=== PATIENT | male | born 1965 | race Caucasian/White ===

== ENCOUNTER → 2020-01-31 09:45 | Outpatient (BNVA) | payer MEDICAID, SELFPAY | PROVIDERS: Family Provider Family Medicine; Visit Provider Nurse Practitioner Psychiatric/Mental Health | DX: F34.1 Dysthymic disorder (principal); F41.1 Generalized anxiety disorder; F17.220 Nicotine dependence, chewing tobacco, uncomplicated | CPT/HCPCS: 99213 ==

== ENCOUNTER → 2020-10-09 08:28 | Outpatient (BNVA) | payer MEDICAID, SELFPAY | PROVIDERS: Family Provider Family Medicine; Visit Provider Nurse Practitioner Psychiatric/Mental Health | DX: F34.1 Dysthymic disorder (principal); F41.1 Generalized anxiety disorder; F17.220 Nicotine dependence, chewing tobacco, uncomplicated | CPT/HCPCS: 99214 ==

== ENCOUNTER → 2020-11-16 09:02 | Outpatient (BNVA) | payer MEDICAID, SELFPAY | PROVIDERS: Family Provider Family Medicine; Visit Provider Nurse Practitioner Psychiatric/Mental Health | DX: F34.1 Dysthymic disorder (principal); F41.1 Generalized anxiety disorder; F17.220 Nicotine dependence, chewing tobacco, uncomplicated | CPT/HCPCS: 99213 ==

== ENCOUNTER → 2021-03-15 08:32 | Outpatient (BNVA) | payer MEDICAID, SELFPAY | PROVIDERS: Family Provider Family Medicine; Visit Provider Nurse Practitioner Psychiatric/Mental Health | DX: F34.1 Dysthymic disorder (principal); F41.1 Generalized anxiety disorder; F17.220 Nicotine dependence, chewing tobacco, uncomplicated | CPT/HCPCS: 99213 ==

== ENCOUNTER → 2021-06-07 09:26 | Outpatient (BNVA) | payer MEDICAID, SELFPAY | PROVIDERS: Visit Provider Nurse Practitioner Psychiatric/Mental Health | DX: F34.1 Dysthymic disorder (principal); F41.1 Generalized anxiety disorder; F17.220 Nicotine dependence, chewing tobacco, uncomplicated | CPT/HCPCS: 99214 ==

== ENCOUNTER → 2021-09-27 08:47 | Outpatient (BNVA) | payer MEDICAID, SELFPAY | PROVIDERS: Visit Provider Nurse Practitioner Psychiatric/Mental Health | DX: F34.1 Dysthymic disorder (principal); F41.1 Generalized anxiety disorder; F17.220 Nicotine dependence, chewing tobacco, uncomplicated | CPT/HCPCS: 99214 ==

== ENCOUNTER 2021-10-17 08:47 | Outpatient (CLI) | payer MEDICAID, SELFPAY ==
--- NOTE | 2021-10-17 | CT_ITS ---
WS: [id number] CT ABDOMEN AND PELVIS WITH CONTRAST HISTORY: JAUNDICE TECHNIQUE: Imaging performed of the abdomen and pelvis with IV contrast. Single phase imaging of the abdomen. Coronal and sagittal reformats are submitted. All CT scans at [facility] use at [address] one of these dose optimization techniques: automated exposure control; mA and/or kV adjustment per patient size (includes targeted exams where dose is matched to clinical indication); or iterative re construction. IV CONTRAST: Omnipaque 300; 95 mL IV. Oral contrast: Yes. DLP: 1369.81 mGycm COMPARISON: Limited abdomen ultrasound 05/14/2021. Lower thorax: Lung bases are clear. Heart is normal size. Small hiatal hernia. Liver/biliary system: Liver is normal size. There is severe bile duct dilatation. Bile ducts are dila kushal within the RIGHT and LEFT hepatic lobes. There is increased density and enhancement along the com mon hepatic duct. The common bile duct at the pancreatic head is not dilated. In the periphery of the RIGHT lobe of the liver there are a few low-attenuation nodules measuring up to 18 mm in diameter. Gallbladder: No history of prior cholecystectomy. A normal identifiable gallbladder is not evident. T here is a large complex low-attenuation collection in the expected location of the gallbladder fossa. There is variable density and variable enhancement. Pancreas: Pancreatic head is normal. There is a lobulated fluid collection involving the tail of the pancreas measuring 6.1 x 5.6 cm. Spleen: Normal size spleen. No mass or infarct. Adrenal glands: Normal. Right kidney: Renal cyst. The largest in the posterior mid kidney measures 2.0 cm. No solid mass or o bstruction. Left kidney: Tiny cortical cysts with no obstruction or solid mass. Aorta: Mild atherosclerosis with no aneurysm. Mild ectasia. Lymphadenopathy: There are several small but mildly prominent lymph nodes at the aortocaval region me asuring up to 7 mm in diameter. Free fluid: None. GI tract: Normal appendix. No GI tract obstruction. Abdominal wall: Unremarkable abdominal wall. No hernia. Pelvis: No free fluid. Urinary bladder is moderately well distended. Diffuse bladder wall thickening measuring up to 5 mm. May be due to partial outlet obstruction from the bladder. Bones: Unremarkable. CT/CT abdomen pelvis w con* [id number] IMPRESSION: 1. Markedly abnormal appearance to the liver and gallbladder. There is severe intrahepatic duct dilatation to the level of the common hepatic duct. Common bi le duct is normal caliber. 2. An identifiable gallbladder is not evident. There is a low-attenuation mass with peripheral enhancement in the region of the gallbladder fossa and extendi ng into the robbin hepatis. More irregular ill-defined enhancement near the gall bladder fossa and robbin hepatis. Neoplasm needs to be excluded. Gallbladder krista plasm or cholangiocarcinoma should be considered. Cannot exclude obstructing st ones. 3. Additional scattered low-attenuation lesions within the liver are very susp icious for metastatic disease. The largest in the LEFT lobe measures 18 mm. 4. Cystic mass associated with the tail of the pancreas measures 6 x 1 x 5.6 c m. Mass is inseparable from the tail of the pancreas and extends along the para renal fascia. Cystic mass. May be related to pancreatic pseudocyst but cystic n eoplasm is not excluded. 5. There are a few small retroperitoneal lymph nodes. Notified Rangel Giron MD at 10/17/2021 11:17 AM.
[2021-10-17] MEDS: iohexol 300 mg/mL 50 mL Btl PO (09:09)
[2021-10-17] MEDS: iohexol 300 mg/mL 100 mL Btl IV (10:54)
== END 2021-10-17 08:48 | disposition home or self-care (01) ==
PROVIDERS: Visit Provider Family Medicine
DX: R17 Unspecified jaundice (principal); K86.9 Disease of pancreas, unspecified
CPT/HCPCS: 74177; Q9967

== ENCOUNTER 2021-11-01 10:33 | Emergency (ER) | payer MEDICAID, SELFPAY ==
[2021-11-01 10:55] VITALS: BP 109/63; PULSE 89; RESP 18; TEMP 36.9; O2SAT 97; BMI 23.6
[2021-11-01 11:40] LABS: Basophils # 0.1 10^3/uL (0.0-0.1); Basophils % 0.3 %; Hemoglobin 12.5 g/dL (11.7-16.6); Lymphocytes # 0.7 10^3/uL (0.8-4.8); Lymphocytes % 2.6 %; Mean Corpuscular HGB Conc 35.7 g/dL (30.0-36.0); Mean Corpuscular Hemoglobin 30.4 pg (28.0-34.0); Mean Corpuscular Volume 85.2 fl (80-94); Mean Platelet Volume 11.4 fL (7.4-10.4); Monocytes # 0.7 10^3/uL (0.2-0.9); Monocytes % 2.9 %; Neutrophils # 24.12 10^3/uL (1.8-7.7); Nucleated Red Blood Cells % 0 %; Platelet Count 268 10^3/cmm (130-400); Red Blood Count 4.11 10^6/uL (4.1-5.3); Red Cell Distribution Width 18.6 % (12.1-15.1); White Blood Count 25.9 10^3/uL (4.0-10.0)
[2021-11-01 11:42] LABS: INR 1.67 (0.8-1.2)
[2021-11-01 11:43] LABS: Partial Thromboplastin Time 53.8 SECONDS (23.9-36.7)
--- NOTE | 2021-11-01 11:43 | ECG_ITS ---
[facility] Test Date: 2021-11-01 Pat Name: Tristan Medrano Department: Room: Gender: Male Infrastructure Architect: : 1965 Requested By: Luis Kamara Order Number: [id number] Courtney MD: Michael Longo M.D. Measurements Intervals [place] Rate: 83 P: 33 MS: 147 QRS: 16 QRSD: 140 T: 33 QT: 403 QTc: 475 Interpretive Statements SINUS RHYTHM INDETERMINATE AXIS RIGHT BUNDLE BRANCH BLOCK [120+ ms QRS DURATION, UPRIGHT V1, 40+ ms S IN I/aVL/V4/V5/V6] Compared to ECG 02/15/2018 09:32:43 Indeterminate axis now present Right bundle-branch block now present Short MS interval no longer present T-wave abnormality no longer present Electronically Signed On 11-03-2021 13:22:15 CARPENTER/LABOR by Michael Longo M.D. [id number]
--- NOTE | 2021-11-01 11:43 | CTR_ITS ---
PROCEDURE INFORMATION: Exam: CT Abdomen And Pelvis Without Contrast Exam date and time: 11/01/2021 11:43 AM Age: 56 years old Clinical indication: Abdominal pain; Generalized; Prior surgery; Surgery date: <1 month; Surgery type: Hepatic stent; Patient HX: Abd pain w jaundice; Additional info: Eval for stent placement, CR 2.9 TECHNIQUE: Imaging protocol: Computed tomography of the abdomen and pelvis without contrast. Radiation optimization: All CT scans at this facility use at least one of these dose optimization techniques: automated exposure control; mA and/or kV adjustment per patient size (includes targeted exams where dose is matched to clinical indication); or iterative reconstruction. COMPARISON: CT abdomen pelvis w con* [id number] 10/17/2021 10:51 AM RADIATION DOSE METRICS: Total DLP (mGy-cm): 771.34 FINDINGS: Tubes, catheters and devices: The patient is status post median sternotomy with sternal cerclage wires. Pleural spaces: Small right pleural effusion, new. Heart: Small pericardial effusion, new. Liver: Left lobe medial segment hepatic abscess, relatively stable size as can be compared, increased perifocal hepatic parenchymal edema. Presumed additional 2 cm abscess left lobe lateral segment posteriorly (comparable size, increased perifocal hepatic parenchymal edema). Interval hepatic pneumobilia, limited to the left hepatic lobe. Gallbladder and bile ducts: Interval metallic extrahepatic-duodenal biliary ductal stent. Previous biliary ductal calculi no longer identified in the region of the bile duct. No change in right lobe intrahepatic biliary ductal dilatation. Possible gallstones in the gallbladder fossa (series 2, image 23). Severely gangrenous gallbladder. Pancreas: Interval progression of pancreatitis. Nonspecific hyperattenuating (28 Hounsfield units) lesion in/contiguous with the pancreatic tail appears relatively stable (hematoma?). Spleen: A small anterior splenule is present. Adrenal glands: Edema/maylin-adrenal edema of the left adrenal gland which is felt to be secondary Kidneys and ureters: Right renal 25 mm benign cyst. Stomach and bowel: Moderate wall thickening of the ascending and proximal transverse colon, felt to be secondary. Severe 2nd and 3rd portion duodenal and maylin duodenal edema which is felt to be secondary. Moderate edema of the 4th portion duodenum and proximal jejunum which is felt to be secondary. Wall thickening and edema left mid abdominal small bowel loops (series 2, image 43). Appendix: The vermiform appendix is normal caliber, periappendiceal edema is felt to be secondary. Intraperitoneal space: Interval mild anterior perihepatic ascites. No pneumoperitoneum. Vasculature: Moderate aortic atherosclerotic calcification without aneurysm. The iliac arteries show moderate bilateral atherosclerotic calcifications without evidence of aneurysm. Interval central mesenteric venous congestion (series 602, image 37) and edema. Probable thrombus of the mid-distal extrahepatic main portal vein and proximal SMV (series 602, image 34-35). Lymph nodes: No enlarged lymph nodes. Urinary bladder: Unremarkable as visualized. Reproductive: Unremarkable as visualized. Bones/joints: L5-S1 spondylosis with bilateral neural foraminal stenosis. Soft tissues: Unremarkable. CT/CT abdomen pelvis wo con [id number] IMPRESSION: 1. Interval metallic extrahepatic-duodenal biliary ductal stent. 2. Previous biliary ductal calculi no longer identified in the region of the bile duct, presumed endoscopically removed. 3. No change in right lobe intrahepatic biliary ductal dilatation. This suggests the right hepatic ducts are not drained by the stent. 4. Severely gangrenous gallbladder. 5. Left lobe medial segment hepatic abscess, relatively stable size as can be compared, increased perifocal hepatic parenchymal edema. 6. Presumed additional abscess left lobe lateral segment posteriorly (comparable size, increased perifocal hepatic parenchymal edema). 7. Interval mild anterior perihepatic ascites. Biliary leakage is difficult to exclude. If concern for biliary leak is clinically present, radionuclide imaging may be helpful. 8. Interval progression of pancreatitis. 9. Nonspecific hyperattenuating lesion in/contiguous with the pancreatic tail appears relatively stable (hematoma?). 10. Interval central mesenteric venous congestion and edema. 11. Probable interval intraluminal thrombus of the mid-distal extrahepatic main portal vein and proximal SMV. Contrast-enhanced imaging recommended. 12. Wall thickening and edema left mid abdominal small bowel loops. Possible venous ischemia. 13. Right renal mm benign cyst. No follow-up imaging is recommended. 14. Small pericardial effusion, new. 15. Small right pleural effusion, new. COMMENTS: Consistent with the [employer]'s Incidental Findings Committee white paper (J Am Tereza Radiol 2018): Any incidental renal lesion less than 1 cm or classified as too small to characterize, or any incidental cystic renal lesion characterized as simple-appearing, is likely benign. No follow-up imaging is recommended for these lesions per consensus recommendations based on imaging criteria. Radiation Dose CTDIVOL = (mGy): DLP = 771.34 (mGy-cm)
[2021-11-01 11:47] LABS: Alanine Aminotransferase 371 U/L (0-41); Albumin Level 2.3 g/dL (3.5-5.2); Anion Gap 17.7 (5-19); Blood Urea Nitrogen 33 mg/dL (6-20); Carbon Dioxide 25 mmol/L (22-29); Chloride 83 mmol/L (98-107); Globulin 3.7 g/dL (1.3-4.6); Glomerular Filtration Rate 22.5 mL/min (90-130); Glucose 121 mg/dL (65-115); Osmolality Calculated 263 mOsm/kg (285-295); Potassium 3.7 mmol/L (3.5-5.1); Sodium 122 mmol/L (136-145)
[2021-11-01 11:55] LABS: Total Bilirubin 13.8 mg/dL (0.15-1.2)
--- NOTE | 2021-11-01 11:55 | ED_ITS ---
HPI - General Adult General: Chief complaint: General Medical Stated complaint: STENT BY LIVER @ 2 WKS AGO,PT COLORING IS YELLOW Time Seen by Provider: 11/01/21 11:02 History of Present Illness: HPI narrative: Patient is a 56-year-old male with a history of recent hepatic stent 1 week prior presenting to the emergency room with worsening fatigue, weakness, jaundice, difficulty tolerating p.o., and diarrhea. Present since his biliary stent was placed at [facility], he has had more pain, decreased p.o. intake, decreased energy since. Patient tells me that he was diagnosed with gallbladder infection and is currently waiting for resolution of symptoms prior to getting surgery. Review of Systems Narrative: Constitutional: No fever, no chills. fatigue HEENT: No vision changes CV: No chest pain, no palpitations PULM: no cough, no dyspnea. GI: +L sided abdominal pain, no N/V/D. +decreased PO intake : No dysuria MSKEL: No muscle pain SKIN: No new rashes, no lesions. NEURO: No headache, no focal weakness. +generalized weaknesss HEME: No visible bruises PSYCH: Normal mood PFSH ED PFSH: Medical History (Updated 11/01/21 @ 13:51 by Luis Kamara MD) Chewing tobacco nicotine dependence Generalized anxiety disorder Persistent depressive disorder with anxious distress, currently mild Psychiatric care Physical Exam Narrative: EXAM NARRATIVE: Head: Atraumatic Eyes: PERRL, conjunctiva without injection, +jaundice ENT: Mucous membrane Dry NECK: Supple, ROM intact LUNGS: LCTAB, no crackles/rhonchi CV: RRR ABDOMEN: Soft, +mild LLQ TTP. NO guarding rebound, guarding, rigidity. No CVA tenderness to percussion. Neg Jones/Neg McBurney's point tenderness, no suprabupic tenderness to palpation. EXTREMITY: Normal ROM SKIN: No rash or erythema NEURO: Awake and alert, no focal motor deficits PSYCH: Normal mood and affect Course Vital Signs: Vital signs: Vital Signs Temperature 98.5 F 11/01/21 10:55 Pulse Rate 87 11/01/21 17:48 Respiratory Rate 14 11/01/21 17:48 Blood Pressure 119/74 11/01/21 17:48 Pulse Oximetry 93 11/01/21 17:48 MDM - General Adult MDM Narrative: Medical decision making narrative: Patient is a 48-year-old male status post biliary stent x1 week presenting to the emergency room with worsening pain, nausea/vomiting, malaise and generalized weakness since procedure. Patient had underwent procedure at [facility]. On lab work-up, patient is noted to have white count 25.9, creatinine of 2.9T bili elevation of 13. CT abdomen pelvis without contrast showed perihepatic foci of abscess, stent malfunction with right hepatic duct not draining, portal venous thrombosis, and necrotic gallbladder S/p zosyn and vancomycin for infection. Blood culture and lactic acid ordered. Patient is started on a heparin drip. Case was discussed with Dr. Loaiza from [facility] who agreed with the transfer. Disposition: Transfer to outside hospital Lab Data: Labs: Lab Results 11/01/21 11/01/21 11/01/21 11:20 11:20 11:20 WBC 25.9 10^3/uL H 10 ^3/uL (4.0-10.0) RBC 4.11 10^6/uL 10^6 /uL (4.1-5.3) Hgb 12.5 g/dL g/dL (11.7-16.6) Hct 35.0 % L % (42.0-52.0) MCV 85.2 fl fl (80-94) MCH 30.4 pg pg (28.0-34.0) MCHC 35.7 g/dL g/dL (30.0-36.0) RDW 18.6 % H % (12.1-15.1) Plt Count 268 10^3/cmm 10^3 /cmm (130-400) MPV 11.4 fL H fL (7.4-10.4) Neut % (Auto) 93.0 % % Lymph % (Auto) 2.6 % % Perkins % (Auto) 2.9 % % Eos % (Auto) 0.0 % % Baso % (Auto) 0.3 % % Neut # (Auto) 24.12 10^3/uL H 1 0^3/uL (1.8-7.7) Lymph # (Auto) 0.7 10^3/uL L 10^ 3/uL (0.8-4.8) Perkins # (Auto) 0.7 10^3/uL 10^3/ uL (0.2-0.9) Eos # (Auto) 0.0 10^3/uL 10^3/ uL (0.0-0.8) Baso # (Auto) 0.1 10^3/uL 10^3/ uL (0.0-0.1) Nucleated RBC % (a uto) 0 % % Nucleated RBCs # 0.0 /100WBC /100W BC PT 20.10 SECONDS H S ECONDS (12.1-14.9) INR 1.67 H (0.8-1.2) APTT 53.8 SECONDS H SE CONDS (23.9-36.7) Sodium 122 mmol/L L mmol /L (136-145) Potassium 3.7 mmol/L mmol/L (3.5-5.1) Chloride 83 mmol/L L mmol/ L (98-107) Carbon Dioxide 25 mmol/L mmol/L (22-29) Anion Gap 17.7 (5-19) BUN 33 mg/dL H mg/dL (6-20) Creatinine 2.9 mg/dL H mg/dL (0.7-1.2) GFR Calculation 22.5 mL/min L mL/ min (90-130) Glucose 121 mg/dL H mg/dL (65-115) Calculated Osmolal ity 263 mOsm/kg L mOs m/kg (285-295) Lactate Calcium 7.0 mg/dL L mg/dL (8.5-10.5) Total Bilirubin 13.8 mg/dL H* mg/ dL (0.15-1.2) Direct Bilirubin 13.10 mg/dL H mg/ dL (0.00-0.30) GGT AST 1236 U/L H U/L (0-40) ALT 371 U/L H U/L (0-41) Alkaline Phosphata se 1479 IU/L H* IU/L (40-130) Troponin T Baselin e Troponin T 120 Min [place] Delta Troponin T Total Protein 6.0 g/dL L g/dL (6.6-8.7) Albumin 2.3 g/dL L g/dL (3.5-5.2) Globulin 3.7 g/dL g/dL (1.3-4.6) Lipase 399 U/L H U/L (13-60) 11/01/21 11/01/2111/01/21 11:20 11:20 13:16 WBC RBC Hgb Hct MCV MCH MCHC RDW Plt Count MPV Neut % (Auto) Lymph % (Auto) Perkins % (Auto) Eos % (Auto) Baso % (Auto) Neut # (Auto) Lymph # (Auto) Perkins # (Auto) Eos # (Auto) Baso # (Auto) Nucleated RBC % (a uto) Nucleated RBCs # PT INR APTT Sodium Potassium Chloride Carbon Dioxide Anion Gap BUN Creatinine GFR Calculation Glucose Calculated Osmolal ity Lactate Calcium Total Bilirubin Direct Bilirubin GGT 894 U/L H U/L (8-61) AST ALT Alkaline Phosphata se Troponin T Baselin e 57 ng/L H ng/L (0-15) Troponin T 120 Min [place] 53.20 ng/L H ng/L (0-15) Delta Troponin T -3.80 ABS# L ABS# (0-10) Total Protein Albumin Globulin Lipase 11/01/21 14:20 WBC RBC Hgb Hct MCV MCH MCHC RDW Plt Count MPV Neut % (Auto) Lymph % (Auto) Perkins % (Auto) Eos % (Auto) Baso % (Auto) Neut # (Auto) Lymph # (Auto) Perkins # (Auto) Eos # (Auto) Baso # (Auto) Nucleated RBC % (a uto) Nucleated RBCs # PT INR APTT Sodium Potassium Chloride Carbon Dioxide Anion Gap BUN Creatinine GFR Calculation Glucose Calculated Osmolal ity Lactate 1.1 mmol/L mmol/L (0.5-2.2) Calcium Total Bilirubin Direct Bilirubin GGT AST ALT Alkaline Phosphata se Troponin T Baselin e Troponin T 120 Min [place] Delta Troponin T Total Protein Albumin Globulin Lipase Imaging Data^: Other Imaging: Radiologist's impression: [address] [id number] Scan ReportSigned with Addenda Patient: Amarjit Medrano #: [id number]: 1965Acct#:[id number]/Sex: 56 / MADM Date: 11/01/21Loc: ERRoom/Bed:Attending Dr: Ordering Provider/Ordering MD: Luis Kamara MD Date of Service: 11/01/21 Procedure(s): CT abdomen pelvis [facility] [id number] Accession Number(s): [id number] Report Number: [id number]/CT abdomen pelvis wo con [id number] THIS REPORT CONTAINS FINDINGS THAT MAY BE CRITICAL TO PATIENT CARE. The findings were verbally communicated by me to DR. LUIS KAMARA, via telephone conference at 1:47 PM CRULLER MAKER on 11/01/2021. The findings were acknowledged and understood. CORRECTION: 13. Right renal benign cyst. No follow-up imaging is recommended. Radiation Dose CTDIVOL = (mGy): DLP = 771.34 (mGy-cm) Addendum Dictated By: Sean Limon MDAddendum Signed By: Sean Limon MDSigned Date/Time:11/01/21 1350Addendum Cosigned By: PROCEDURE INFORMATION: Exam: CT Abdomen And Pelvis Without Contrast Exam date and time: 11/01/2021 11:43 AM Age: 56 years old Clinical indication: Abdominal pain; Generalized; Prior surgery; Surgery date: <1 month; Surgery type: Hepatic stent; Patient HX: Abd pain w jaundice; Additional info: Eval for stent placement, CR 2.9 TECHNIQUE: Imaging protocol: Computed tomography of the abdomen and pelvis without contrast. Radiation optimization: All CT scans at this facility use at least one of these dose optimization techniques: automated exposure control; mA and/or kV adjustment per patient size (includes targeted exams where dose is matched to clinical indication); or iterative reconstruction. COMPARISON: CT abdomen pelvis w con* [id number] 10/17/2021 10:51 AM RADIATION DOSE METRICS: Total DLP (mGy-cm): 771.34 FINDINGS: Tubes, catheters and devices: The patient is status post median sternotomy with sternal cerclage wires. Pleural spaces: Small right pleural effusion, new. Heart: Small pericardial effusion, new. Liver: Left lobe medial segment hepatic abscess, relatively stable size as can be compared, increased perifocal hepatic parenchymal edema. Presumed additional 2 cm abscess left lobe lateral segment posteriorly (comparable size, increased perifocal hepatic parenchymal edema). Interval hepatic pneumobilia, limited to the left hepatic lobe. Gallbladder and bile ducts: Interval metallic extrahepatic-duodenal biliary ductal stent. Previous biliary ductal calculi no longer identified in the region of the bile duct. No change in right lobe intrahepatic biliary ductal dilatation. Possible gallstones in the gallbladder fossa (series 2, image 23). Severely gangrenous gallbladder. Pancreas: Interval progression of pancreatitis. Nonspecific hyperattenuating (28 Hounsfield units) lesion in/contiguous with the pancreatic tail appears relatively stable (hematoma?). Spleen: A small anterior splenule is present. Adrenal glands: Edema/maylin-adrenal edema of the left adrenal gland which is felt to be secondary Kidneys and ureters: Right renal 25 mm benign cyst. Stomach and bowel: Moderate wall thickening of the ascending and proximal transverse colon, felt to be secondary. Severe 2nd and 3rd portion duodenal and maylin duodenal edema which is felt to be secondary. Moderate edema of the 4th portion duodenum and proximal jejunum which is felt to be secondary. Wall thickening and edema left mid abdominal small bowel loops (series 2, image 43). Appendix: The vermiform appendix is normal caliber, periappendiceal edema is felt to be secondary. Intraperitoneal space: Interval mild anterior perihepatic ascites. No pneumoperitoneum. Vasculature: Moderate aortic atherosclerotic calcification without aneurysm. The iliac arteries show moderate bilateral atherosclerotic calcifications without evidence of aneurysm. Interval central mesenteric venous congestion (series 602, image 37) and edema. Probable thrombus of the mid-distal extrahepatic main portal vein and proximal SMV (series 602, image 34-35). Lymph nodes: No enlarged lymph nodes. Urinary bladder: Unremarkable as visualized. Reproductive: Unremarkable as visualized. Bones/joints: L5-S1 spondylosis with bilateral neural foraminal stenosis. Soft tissues: Unremarkable. CT/CT abdomen pelvis wo con [id number] IMPRESSION: 1. Interval metallic extrahepatic-duodenal biliary ductal stent. 2. Previous biliary ductal calculi no longer identified in the region of the bile duct, presumed endoscopically removed. 3. No change in right lobe intrahepatic biliary ductal dilatation. This suggests the right hepatic ducts are not drained by the stent. 4. Severely gangrenous gallbladder. 5. Left lobe medial segment hepatic abscess, relatively stable size as can be compared, increased perifocal hepatic parenchymal edema. 6. Presumed additional abscess left lobe lateral segment posteriorly (comparable size, increased perifocal hepatic parenchymal edema). 7. Interval mild anterior perihepatic ascites. Biliary leakage is difficult to exclude. If concern for biliary leak is clinically present, radionuclide imaging may be helpful. 8. Interval progression of pancreatitis. 9. Nonspecific hyperattenuating lesion in/contiguous with the pancreatic tail appears relatively stable (hematoma?). 10. Interval central mesenteric venous congestion and edema. 11. Probable interval intraluminal thrombus of the mid-distal extrahepatic main portal vein and proximal SMV. Contrast-enhanced imaging recommended. 12. Wall thickening and edema left mid abdominal small bowel loops. Possible venous ischemia. 13. Right renal mm benign cyst. No follow-up imaging is recommended. 14. Small pericardial effusion, new. 15. Small right pleural effusion, new. COMMENTS: Consistent with the [employer]'s Incidental Findings Committee white paper (J Am Tereza Radiol 2018): Any incidental renal lesion less than 1 cm or classified as too small to characterize, or any incidental cystic renal lesion characterized as simple-appearing, is likely benign. No follow-up imaging is recommended for these lesions per consensus recommendations based on imaging criteria. Radiation Dose CTDIVOL = (mGy): DLP = 771.34 (mGy-cm) Dictated By:Sean Limon MDSigned By:Sean Limon MDSigned Date/Time:11/01/21 1336DD/ 1143 Discharge Plan Discharge Patient Disposition: Transfer to ED Clinical Impression: Gallbladder gangrene, Displacement of biliary stent, Portal vein thrombosis, Abscess of liver Condition: Stable Prescriptions: No Action levothyroxine 75 mcg capsule 88 mcg PO DAILY RF: 0 mirtazapine 45 mg tablet 45 mg PO .QHS Qty: 30 RF: 6 atorvastatin 40 mg tablet 45 mg PO DAILY RF: 0 metoprolol succinate 25 mg tablet extended release 24 hr 25 mg PO DAILY RF: 0 alprazolam [Xanax] 1 mg tablet 1 mg PO BID PRN (Reason: anxiety) Qty: 60 RF: 3 Referrals: Yesika Giron PA [Primary Care Provider] - Coding Level of Care Code ED Human Resources Communications Manager for [facility]
[2021-11-01 12:23] LABS: Alkaline Phosphatase 1479 IU/L (40-130); Aspartate Amino Transferase 1236 U/L (0-40); Lipase 399 U/L (13-60)
[2021-11-01 12:29] LABS: Gamma Glutamyl Transferase 894 U/L (8-61)
[2021-11-01 12:34] LABS: Troponin(5th) Baseline 57 ng/L (0-15)
[2021-11-01] MEDS: sodium chloride 0.9% 1,000 ML 999 ML IV (12:50)
[2021-11-01 12:52] VITALS: BP 108/69; PULSE 83; RESP 16; O2SAT 93
--- NOTE | 2021-11-01 13:43 | ECG_ITS ---
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 Measurements Intervals [place] Rate: 82 P: 29 OR: 144 QRS: -8 QRSD: 131 T: 26 QT: 418 QTc: 490 Interpretive Statements SINUS RHYTHM RIGHT BUNDLE BRANCH BLOCK [120+ ms QRS DURATION, UPRIGHT V1, 40+ ms S IN I/aVL/V4/V5/V6] POSSIBLE SEPTAL MYOCARDIAL INFARCTION , OF INDETERMINATE AGE [30 ms Q WAVE IN V1/V2] Compared to ECG 11/01/2021 12:29:40 Myocardial infarct finding now present Indeterminate axis no longer present Electronically Signed On 11-04-2021 17:31:32 RADIO INTERFERENCE SUPERVISOR by Michael Longo M.D. [id number]
[2021-11-01 14:15] VITALS: BP 107/72; PULSE 83; RESP 16; O2SAT 94
[2021-11-01] MEDS: heparin 5,000 unit/mL INJ 1 mL 4000 UNIT IVP (14:33)
[2021-11-01] MEDS: piperacillin-tazobactam 4.5 GM in sodium chloride 0.9% (plus) 50 ML IV (14:35)
[2021-11-01] MEDS: vancomycin 1,000 MG in sodium chloride 0.9% 250 ML 250 MG IV (14:38)
[2021-11-01 14:46] LABS: Lactate (Lactic Acid level) 1.1 mmol/L (0.5-2.2)
[2021-11-01] MEDS: heparin drip 25,000 UNIT/500 ML PREMIX 15.88 UNIT IV (15:27)
[2021-11-01 17:48] VITALS: BP 119/74; PULSE 87; RESP 14; O2SAT 93
== END 2021-11-01 19:13 ==
PROVIDERS: Emergency Provider Emergency Medicine; PCP Physician Assistant
DX: I81 Portal vein thrombosis (principal); K75.0 Abscess of liver; K81.0 Acute cholecystitis; K82.A1 Gangrene of gallbladder in cholecystitis; T85.520A Displacement of bile duct prosthesis, initial encounter; F17.220 Nicotine dependence, chewing tobacco, uncomplicated
CPT/HCPCS: 74176; 80053; 82248; 82977; 83605; 83690; 84484; 85025; 85610; 85730; 87040; 87077; 87186; 87205; 93005; 96365; 96367; 99285; J1644; J2543; J3370; J7030; J7050